=== PATIENT | male | born 1980 | race Caucasian/White ===

== ENCOUNTER 2018-02-04 02:08 | Inpatient (IN) | payer MEDICAID ==
[~2018-02-04] VITALS: Ht 188 cm; Wt 111.6 kg
--- NOTE | 2018-02-04 02:16 | NUR ---
PT RA LEFT ANKLE FRACTURE S/P GLF, RUNNING FROM SHOOTING X 30MINS YIELD ANALYST PER RA PLACED LEFT ANKLE AIR SPLINT. PT AOX3 RR EVEN AND UNLABORED. NO SOB NOTED. NAD NOTED. NO NVD AT THIS TIME. PT GOWNED AND PLACED ON MONITOR. DR DIETZ AT BEDSIDE FOR EVAL.
--- NOTE | 2018-02-04 02:17 | NUR ---
RADIOLOGY AT BEDSIDE FOR XR.
--- NOTE | 2018-02-04 02:25 | NUR ---
FINANCE ASSOCIATE AT BEDSIDE
[2018-02-04] MEDS ORDERED: MORPHINE SULFATE INJ 2 MG/ML DISP.SYRIN IV ONE (02:30)
[2018-02-04] MEDS ORDERED: ONDANSETRON HCL/PF - ER 4 MG/2 ML VIAL IV ONE (02:30)
[2018-02-04] MEDS ORDERED: CEFAZOLIN 1 GM in IV D5W 50 ML IV ONE (02:30)
[2018-02-04] MEDS ORDERED: CEFAZOLIN 1 GM ONE (02:36)
[2018-02-04] MEDS ORDERED: MORPHINE SULFATE INJ 2 MG/ML DISP.SYRIN ONE (02:36)
[2018-02-04] MEDS ORDERED: ONDANSETRON HCL/PF 4 MG/2 ML VIAL ONE (02:36)
--- NOTE | 2018-02-04 02:50 | NUR ---
ORTHO PAGED PER DR DIETZ
[2018-02-04] MEDS ORDERED: PROPOFOL 20 ML IV ONE (03:11)
--- NOTE | 2018-02-04 03:19 | NUR ---
PT READY FOR CONSCIOUS MODERATE SEDATION. ER MD DIETZ, FIELD SALES TRAINER JUSTYNA, FIELD SALES TRAINER JOSE J, RT BLANKA AND SUPERVISOR HAND WORKERSREYNA CORRAL AT BEDSIDE
--- NOTE | 2018-02-04 03:19 | NUR ---
VITAL SIGNS 108 99% 117/59 R 18 PRE SEDATION
--- NOTE | 2018-02-04 03:20 | NUR ---
PROPOFOL 80MG/8ML IVP RIGHT HAND 20G ADMINISTERED BY ER MD DIETZ. STANDBY IN CASE OF NEED FOR MORE SEDATION
--- NOTE | 2018-02-04 03:21 | NUR ---
POST ADMINSTRATION OF PROPOFOL 110 172/60 99% 17
--- NOTE | 2018-02-04 03:22 | NUR ---
PT STILL AWAKE. IVP RIGHT HAND 20G 20MG/2ML ADMINSTERED BY CHUCKING AND SAWING MACHINE OPERATORVEE MCKNIGHT. WILL CONTINUE TO MONITOR FOR ANY CHANGES
--- NOTE | 2018-02-04 03:25 | NUR ---
VITALS POST ADMINISTRATION OF 20MG OF PROPOFOL 170/61 90 17 99%
[2018-02-04] MEDS ORDERED: PROPOFOL 200 MG/20 ML VIAL IV ONE (03:30)
--- NOTE | 2018-02-04 03:36 | NUR ---
WASTED 100MG/10ML OF PROPOFOL WITH WIRING MECHANICVEE JANSEN
--- NOTE | 2018-02-04 03:36 | NUR ---
WITNESSED AND WASTED 100MG/10ML OF PROPOFOL WITH PROCESS CONTROL TECHNICIANVEE MCKNIGHT
--- NOTE | 2018-02-04 03:58 | NUR ---
RADIOLOGY AT BEDSIDE FOR POST REDUCTION XR
--- NOTE | 2018-02-04 04:08 | NUR ---
PT ASSIGNED 113-1
--- NOTE | 2018-02-04 04:17 | NUR ---
REPORT GIVEN TO VEE RODRIGUEZ.PTS ADMIT TO MS ROOM 113-1,PTS AWARE OF TRANSFER.
--- NOTE | 2018-02-04 04:58 | NUR ---
PT TRANSFERRED TO [facility] BED 113 [facility]
[2018-02-04] MEDS ORDERED: IV D5/0.45 NACL 1,000 ML IV PRN (05:04)
[2018-02-04 05:19] LABS: BASOPHILS % (AUTO) 0.4 % (0.0-2.0); EOSINOPHILS % (AUTO) 0.5 % (0.0-6.0); HEMATOCRIT 39 % (39-51); HEMOGLOBIN 13.2 g/dL (13.5-17.5); LYMPHOCYTES # (AUTO) 1.9 /CMM (0.8-4.8); LYMPHOCYTES % (AUTO) 15.8 % (20.0-44.0); MEAN CORPUSCULAR HGB CONC 34 g/dl (31.0-36.0); MEAN CORPUSCULAR VOLUME 86 fL (80-96); MONOCYTES # (AUTO) 0.7 /CMM (0.1-1.30); MONOCYTES % (AUTO) 5.7 % (2.0-12.0); NEUTROPHILS # (AUTO) 9.2 /CMM (1.8-8.9); NEUTROPHILS % (AUTO) 77.6 % (43.0-81.0); PLATELET COUNT (AUTO) 279 /CMM (150-450); RDW COEFFICIENT OF VARIATION 13.6 (11.5-15.0); RED BLOOD CELL COUNT(AUTO) 4.58 MIL/uL (4.5-6.0); WHITE BLOOD COUNT (AUTO) 11.9 K/uL (4.3-11.0)
[2018-02-04 05:27] LABS: ALBUMIN 4.4 g/dL (3.4-5.0); BILIRUBIN,TOTAL 0.4 mg/dL (0.2-1.0); CREATININE 1.4 mg/dL (0.6-1.3); MAGNESIUM 2.3 mg/dL (1.8-2.4); POTASSIUM 3.9 mmol/L (3.5-5.1); TOTAL PROTEIN, SERUM 8.5 g/dL (6.4-8.2)
[2018-02-04] MEDS ORDERED: ACETAMINOPHEN 325 MG TABLET PO PRN (05:30)
[2018-02-04] MEDS ORDERED: ONDANSETRON HCL/PF 4 MG/2 ML VIAL IVP PRN (05:30)
[2018-02-04] MEDS ORDERED: HYDROMORPHONE INJ 2 MG/ML DISP.SYRIN IV PRN (05:30)
[2018-02-04 05:38] LABS: INR 0.89 (0.87-1.13)
--- NOTE | 2018-02-04 06:00 | NUR ---
MADELINE RN NOTES RECEIVED PATIENT FROM THE ER. PATIENT IS A/O X4.NO LABORED BREATHING, NO SOB NOTED AT THIS TIME WITH SPO2 100% IN ROOM AIR. VITAL SIGNS ARE WNL. PATIENT IS COMPLAINING OF PAIN 10/10 IN PAIN SCALE . RIGHT HAND IV LINE 20G IS PATIENT, INTACT WITH 1/2 NS DEXTROSE @75ML/HR. LEFT FOOT IS IN CAST. PATIENT'S PANTS WERE CUP IN THE ER FOR EASY ACCESS TO THE FRACTURED EXTREMITY. ALL SAFETY MEASURES ARE IMPLEMENTED, BED IN LOW. LOCKED POSITION, CALL LIGHT IN REACH. WILL CONTINUE TO MONITOR.
[2018-02-04 07:17] VITALS: BP 149/90
--- NOTE | 2018-02-04 07:24 | NUR ---
RN NOTES ADMITTED WITH $896 OFFERED TO PUT IN THE SAFE BUT REFUSED. PREFERS TO KEEP AT BEDSIDE WITH HIS OTHER BELONGINGS. PATIENT IS ALERT AND ORIENTED X 4.
--- NOTE | 2018-02-04 07:30 | NUR ---
MS RN OPENING NOTE PATIENT IS ALERT AND ORIENTED x4. PATIENT STATES 8/10 PAIN ON LEFT ANKLE AREA, PAIN MEDICATIONS GIVEN BY RECONCILIATION ANALYST RN. ABLE TO COMMUNICATE NEEDS. NO SOB OR DISTRESS NOTED, ON ROOM AIR TOLERATING WELL AT 96%. NPO AT THIS TIME. USES URINAL. RIGHT HAND IV INTACT AND PATENT NO REDNESS OR SWELLING NOTED WITH IV FLUIDS RUNNING AT 75 ML/HR TOLERATING WELL. WILL CONTINUE TO MONITOR THROUGHOUT SHIFT
--- NOTE | 2018-02-04 09:25 | NUR ---
MS RN NOTE PER MD ORDER TO CHANGE DILAUDID 1 MG IV Q4H TO DILAUDID 1MG IV Q3H. ORDERS NOTED AND CARRIED OUT.
[2018-02-04] MEDS ORDERED: HYDROMORPHONE INJ 0.5 MG/0.5 ML SYRINGE IV PRN (09:30)
[2018-02-04] MEDS: IV NS 0.9% 1,000 ML IV PRN (10:17)
[2018-02-04] MEDS ORDERED: TDAP [DIPH/PERTUSSIS/TET] 0.5 ML VIAL IM ONE (10:30)
[2018-02-04] MEDS ORDERED: HYDROMORPHONE INJ 2 MG/ML DISP.SYRIN ONE ×2 (11:06→13:53)
[2018-02-04] MEDS ORDERED: SUCCINYLCHOLINE CHLORIDE 20 MG/ML VIAL ONE (11:06)
[2018-02-04] MEDS ORDERED: MIDAZOLAM 50 MG/10 ML VIAL ONE (11:06)
[2018-02-04] MEDS ORDERED: ROCURONIUM BROMIDE 50 MG/5 ML ONE ×3 (11:06→13:53)
[2018-02-04] MEDS ORDERED: MIDAZOLAM HCL 2 MG/2ML VIAL ONE ×2 (11:11)
--- NOTE | 2018-02-04 11:12 | NUR ---
MS RN NOTE CONSENTS OBTAINED FOR SURGICAL PROCEDURE TODAY WITH DR. MCFARLANE. CONSENTS PLACED IN CHART. CONSENT ALSO OBTAINED FOR TDAP VACCINATION, TO BE ADMINISTERED.
--- NOTE | 2018-02-04 11:46 | NUR ---
MS RN NOTE TDAP VACCINE ADMINISTERED ON LEFT DELTOID PRIOR TO SURGERY. OR IS NOW AT BEDSIDE TO TAKE PATIENT FOR PROCEDURE. WILL CONTINUE CARE WHEN PATIENT ARRIVES BACK ONTO UNIT
[2018-02-04] MEDS ORDERED: BACITRACIN 50000 UNITS/VIAL ONE (11:54)
[2018-02-04] MEDS: CEFAZOLIN 1 GM in IV D5W 50 ML IV SCH ×2 (13:00→21:17)
--- NOTE | 2018-02-04 13:00 | NUR ---
MS RN NOTE ANCEF DOSE GIVEN IN OR PRIOR TO SURGERY. MADE PHARMACY AWARE.
[2018-02-04] MEDS ORDERED: FENTANYL PF 100MCG/2ML AMPUL ONE (15:42)
[2018-02-04] MEDS ORDERED: oxyCODONE IR immediate release 5 MG PO PRN (16:00)
[2018-02-04] MEDS ORDERED: MORPHINE SULFATE INJ 2 MG/ML DISP.SYRIN IV PRN (16:00)
--- NOTE | 2018-02-04 16:00 | NUR ---
MS RN NOTE PATIENT NOW BACK FROM OR. PATIENT IS ALERT AND ORIENTED x4. ON 2L/MIN OF OXYGEN VIA NASAL CANNULA. HOWARD CATHETER IN AT THIS TIME, DRAINING WELL TO GRAVITY. ALL MD ORDERS NOTED AND CARRIED OUT. WILL CONTINUE TO MONITOR PATIENT
[2018-02-04 17:10] VITALS: BP 157/74
--- NOTE | 2018-02-04 18:38 | NUR ---
MS RN CLOSING NOTE PATIENT RESTING IN BED COMFORTABLY AT THIS TIME. NO FACIAL GRIMACING NOTED. NO SOB OR DISTRESS NOTED. CALL LIGHT WITHIN REACH AT ALL TIMES. SAFETY MEASURES IMPLEMENTED. ABLE TO COMMUNICATE NEEDS. IV INTACT AND PATENT WITH IV FLUIDS RUNNING AT THIS TIME. ALL DUE MEDICATIONS GIVEN ORDERED. S/P IRRIGATION AND DEBRIDEMENT AND SURGICAL FIXATION OF OPEN LEFT ANKLE FRACTURE DISLOCATION BY DR. BURROUGHS. HOWARD CATHETER IN PLACE AND DRAINING WELL-500 CC OUTPUT. LABS TO BE DRAWN IN AM. ON 2L/MIN OF OXYGEN VIA NASAL CANNULA TOLERATING WELL AT 95%. CLEAR LIQUID DIET AND ADVANCE TOLERATED. WILL ENDORSE TO CASHIER SUPERVISOR NURSE FOR BOOKER
[2018-02-04 20:00] VITALS: BP 126/64
[2018-02-04] MEDS: HYDROMORPHONE INJ 2 MG/ML DISP.SYRIN IV PRN (20:14)
[2018-02-04] MEDS: oxyCODONE IR immediate release 5 MG PO PRN (22:08)
[2018-02-05] MEDS: HYDROMORPHONE INJ 2 MG/ML DISP.SYRIN IV PRN ×7 (01:01→21:17)
[2018-02-05 04:00] VITALS: BP 116/71
[2018-02-05] MEDS: IV NS 0.9% 1,000 ML IV PRN (04:10)
[2018-02-05] MEDS: CEFAZOLIN 1 GM in IV D5W 50 ML IV SCH ×3 (04:12→21:30)
[2018-02-05] MEDS: oxyCODONE IR immediate release 5 MG PO PRN ×3 (06:34→15:28)
[2018-02-05 06:51] LABS: ALBUMIN 3.7 g/dL (3.4-5.0); BILIRUBIN,TOTAL 1.2 mg/dL (0.2-1.0); CALCIUM, SERUM 8.9 mg/dL (8.5-10.1); CREATININE 1.2 mg/dL (0.6-1.3); MAGNESIUM 1.9 mg/dL (1.8-2.4); PHOSPHORUS 3.5 mg/dL (2.5-4.9); POTASSIUM 3.7 mmol/L (3.5-5.1); TOTAL PROTEIN, SERUM 7.5 g/dL (6.4-8.2)
[2018-02-05 06:57] LABS: BASOPHILS % (AUTO) 0.2 % (0.0-2.0); EOSINOPHILS % (AUTO) 0.2 % (0.0-6.0); HEMATOCRIT 34 % (39-51); HEMOGLOBIN 11.4 g/dL (13.5-17.5); LYMPHOCYTES # (AUTO) 1.5 /CMM (0.8-4.8); LYMPHOCYTES % (AUTO) 13.3 % (20.0-44.0); MEAN CORPUSCULAR HGB CONC 34 g/dl (31.0-36.0); MEAN CORPUSCULAR VOLUME 86 fL (80-96); MONOCYTES # (AUTO) 1.2 /CMM (0.1-1.30); MONOCYTES % (AUTO) 10.2 % (2.0-12.0); NEUTROPHILS # (AUTO) 8.6 /CMM (1.8-8.9); NEUTROPHILS % (AUTO) 76.1 % (43.0-81.0); PLATELET COUNT (AUTO) 255 /CMM (150-450); RDW COEFFICIENT OF VARIATION 13.8 (11.5-15.0); RED BLOOD CELL COUNT(AUTO) 3.89 MIL/uL (4.5-6.0); WHITE BLOOD COUNT (AUTO) 11.4 K/uL (4.3-11.0)
--- NOTE | 2018-02-05 07:20 | NUR ---
RN NOTES PT IS LAYING DOWN IN BED, AWAKE AND ALERT. PT ON RA, RESPIRATIONS ARE EVEN AND UNLABORED. IV ON R HAND INTACT AND RUNNING NS @ 100ML/HR. SURGICAL SITE IS COVERED WITH DRESSING AND BANDAGE, INTACT AND CLEAN. NO SIGNS OF DISTRESS NOTED. SAFETY MEASURES ARE IN PLACE, CALL LIGHT IS IN REACH. WILL CONTINUE TO MONITOR.
--- NOTE | 2018-02-05 07:23 | NUR ---
MS RN NOTE PT REMAINED STABLE DURING SHIFT. NO ACUTE DISTRESS NOTED. PAIN MANAGED WITH MEDICATIONS. ALL NEEDS ATTENDED TO PROMPTLY. WILL ENDORSE TO NEXT SHIFT FOR CONTINUITY OF CARE.
[2018-02-05 08:00] VITALS: BP_SYST 119; BP_SYST 128; BP_DIAS 48; BP_DIAS 77
[2018-02-05] MEDS: ENOXAPARIN SODIUM 40 MG/0.4 ML DISP.SYRIN SQ SCH (08:09)
--- NOTE | 2018-02-05 08:40 | NUR ---
WOUND CARE CONSULT: PT PRESENTS WITH LEFT KNEE AND BACK ABRASIONS, PRESENT ON ADMISSION. RECOMMENDATIONS MADE FOR WOUND CARE. DISCUSSED WITH NURSING STAFF. PT HAS ORTHO DRESSING ON LEFT LOWER LEG/ANKLE AREA. WILL SEE PRN. Kiran Hart IN AGREEMENT WITH PLAN OF CARE. Addendum: 02/05/18 at 0841 by MILES KRUSE WNDNU Amended: Links added.
[2018-02-05] MEDS: BACITRACIN/POLYMYXIN B 15 GM TUBE TP SCH (10:22)
--- NOTE | 2018-02-05 11:00 | NUR ---
RN NOTES PTS HOWARD CATHETER WAS REMOVED. PT WAS ABLE TO VOID INTO URINAL AFTER REMOVAL.
[2018-02-05 16:00] VITALS: BP 121/70
--- NOTE | 2018-02-05 17:54 | NUR ---
RN NOTES PT REFUSED TO HAVE DRESSING CHANGED ON HIS JOH[place]ON AND BACK.
--- NOTE | 2018-02-05 18:34 | NUR ---
RN NOTES PT IS SITTING UP IN BED, AWAKE AND ALERT, RESTING COMFORTABLY. PT ON RA, RESPIRATIONS ARE EVEN AND UNLABORED. IV ON R HAND INTACT AND PATENT. ALL MEDS WERE GIVEN ORDERED AND PT NEEDS MET. NO SIGNS OF DISTRESS NOTED. DILAUDID 1MG GIVEN @ 1749 FOR PAIN MANAGEMENT. SAFETY MEASURES ARE IN PLACE, CALL LIGHT IS IN REACH. WILL ENDORSE TO GRID OPERATOR RN FOR CONTINUITY OF CARE.
[2018-02-05 19:56] VITALS: BP 135/70
[2018-02-05 20:00] VITALS: BP 135/70
--- NOTE | 2018-02-05 20:00 | NUR ---
MS 1 RN NOTE PT IN BED AWAKE. A/O X 4, NO SOB, NO DISTRESS OR DISCOMFORT NOTED. C/O PAIN 2/10 IN LT LOWER LEG. LT LOWER LEG WITH SPLINT ON WITH SX DRESSING. KEPT THE LEG ELEVATED. RT HAND SL INTACT AND PATENT. VSS. SIDE RAILS UP X 3 AND CALL LIGHT WITHIN REACH. CONTINUE TO MONITOR HIM.
[2018-02-06] MEDS: HYDROMORPHONE INJ 2 MG/ML DISP.SYRIN IV PRN ×2 (01:25→20:59)
[2018-02-06 04:00] VITALS: BP_SYST 137; BP_DIAS 70; BP_DIAS 78
[2018-02-06] MEDS: CEFAZOLIN 1 GM in IV D5W 50 ML IV SCH ×3 (05:34→20:56)
--- NOTE | 2018-02-06 06:29 | NUR ---
MS RN NOTE PT IN BED ASLEEP, AROUSABLE. NO DISTRESS OR DISCOMFORT NOTED. DENIES PAIN. KEPT LT LEG ELEVATED. ALL NEEDS ATTENDED. SIDE RAILS UP X 2 AND CALL LIGHT WITHIN REACH. WILL ENDORSE TO DAY SHIFT NURSE FOR CONTINUE TO CARE.
[2018-02-06 08:00] VITALS: BP 142/83
[2018-02-06] MEDS: oxyCODONE IR immediate release 5 MG PO PRN ×3 (08:11→16:54)
[2018-02-06] MEDS: ENOXAPARIN SODIUM 40 MG/0.4 ML DISP.SYRIN SQ SCH (08:12)
[2018-02-06] MEDS: BACITRACIN/POLYMYXIN B 15 GM TUBE TP SCH (08:20)
[2018-02-06] MEDS: IV NS 0.9% 1,000 ML IV PRN ×2 (08:20→16:53)
[2018-02-06 16:00] VITALS: BP 133/94
--- NOTE | 2018-02-06 16:55 | NUR ---
CLARIFIED WITH DR. URBANO PATIENT DISCHARGE ,PER HE NOTIFIED DR. MERIDA PAIN MGT MD R/T PAIN MEDS.,DR. UBRANO ALSO WANTED DR. MERIDA TO PRESCRIBED HOME PAIN MEDS.NO DISCHARGE FOR NOW .
--- NOTE | 2018-02-06 18:57 | NUR ---
RN CLOSING NOTES: PAIN MANAGEMENT WITH OXYCONTIN 10MG. NO DISTRESS NOTED. EATING WELL, VOIDING WELL. LLE ELEVATED ON PILLOW X1. CAP REFILL < 3SEC. NO LLE SWELLING NOTED. BED LOW AND LOCKED. CALL LIGHT WITHIN REACHED. WILL CONTINUE TO MONITOR.
--- NOTE | 2018-02-06 19:19 | NUR ---
MS RN OPENING NOTE RECEIVE PATIENT IS RESTING IN BED, A/O X 4, NO FACIAL GRIMACING NOTED FOR PAIN. NO SOB OR DISTRESS NOTED, IV INTACT AND PATENT NO REDNESS OR SWELLING NOTED. CALL LIGHT WITHIN REACH. SAFETY MEASURES IMPLEMENTED. WILL CONTINUE TO MONITOR THROUGHOUT SHIFT.
[2018-02-06 20:00] VITALS: BP 146/85
[2018-02-06] MEDS: ACETAMINOPHEN 325 MG TABLET PO SCH (20:56)
[2018-02-06] MEDS ORDERED: ZOLPIDEM TARTRATE 10 MG TABLET PO PRN (22:00)
[2018-02-07] MEDS ORDERED: oxyCODONE IR immediate release 5 MG PO PRN
[2018-02-07] MEDS: ACETAMINOPHEN 325 MG TABLET PO SCH ×2 (02:13→08:14)
[2018-02-07] MEDS: oxyCODONE IR immediate release 5 MG PO PRN ×2 (02:14→12:43)
[2018-02-07 04:00] VITALS: BP 120/84
[2018-02-07] MEDS: CEFAZOLIN 1 GM in IV D5W 50 ML IV SCH ×2 (05:05→12:34)
--- NOTE | 2018-02-07 06:09 | NUR ---
MS RN CLOSING NOTES PT COMFORTABLY ASLEEP AND EASILY AWAKEN, TOLERATING ROOM AIR 99% IN STABLE CONDITION. NO COMPLAIN OF PAIN, RESPIRATION EVEN AND UNLABORED. KEPT CLEAN AND DRY AND COMFORTABLE, ALL NURSING CARE RENDERED. NEEDS ATTENDED AND ANTICIPATED, GOOD SKIN CARE PROVIDED. FREQUENT VISUAL CHECK DONE FOR SAFETY EVERY 2 HOURS. ON LOW BED AT ALL TIMES TO ENSURE SAFETY. SAFE HAZARD FREE ENVIRONMENT PROVIDED. NO COMPLAINS OF PAIN. CALL LIGHT WITHIN EASY TO REACH. WILL ENDORSE NEXT SHIFT CONTINUITY OF CARE.
--- NOTE | 2018-02-07 07:38 | NUR ---
RN NOTES PT ASLEEP AND EASILY AROUSABLE, IN ROOM AIR AND TOLERATING WELL, IN STABLE CONDITION. RESPIRATION EVEN AND UNLABORED. NO S/SX OF DISTRESS AT THIS TIME, NO C/O PAIN AT THIS TIME, ON LOW BED TO ENSURE SAFETY. SAFE HAZARD FREE ENVIRONMENT PROVIDED. CALL LIGHT WITHIN EASY TO REACH. WILL CONTINUE TO MONITOR.
[2018-02-07] MEDS: BACITRACIN/POLYMYXIN B 15 GM TUBE TP SCH (08:20)
[2018-02-07] MEDS: ENOXAPARIN SODIUM 40 MG/0.4 ML DISP.SYRIN SQ SCH (08:23)
[2018-02-07] MEDS ORDERED: ENOX40DI SQ (13:51)
[2018-02-07] MEDS ORDERED: OXYC5CAP18 PO (13:51)
--- NOTE | 2018-02-07 15:52 | NUR ---
I&C TECHNICIAN Patient A/Ox4, verbally responsive, breathing even and unlabored, no sob noted, no s/sx of any distress at this time. Patient received discharge instructions and verbalized understanding. Discharge paperworks signed, prescription provided to the patient, and explained how to administer. Belongings reconciled and completed. PIV removed, applied gauze and tape. Skin assessment completed, skin dry and intact, photos taken of bilateral knees and bruise on his lower back. Left lower leg splint, clean, dry and intact. Patient reminded NWB on LLE, patient verbalized understanding. Crutches provided. All needs attended. Patient left the facility in a wheelchair via private car accompanied by his mother.
== END 2018-02-07 14:09 | disposition home or self-care (01) | DRG 313 ==
LOC: ER 02:11 → MEDSG1 04:40
PROVIDERS: ADMIT Nurse Practitioner Acute Care; ATTEND Internal Medicine
PROC: 0Y9L0ZZ Drainage of Left Ankle Region, Open Approach (ICD-10-PCS; principal; 2018-02-04 12:30)
PROC: 0QSK04Z Reposition Left Fibula with Internal Fixation Device, Open Approach (ICD-10-PCS; principal; 2018-02-04 12:30)
DX: S82.842A Displaced bimalleolar fracture of left lower leg, initial encounter for closed fracture (principal); F14.10 Cocaine abuse, uncomplicated; F10.10 Alcohol abuse, uncomplicated; F17.210 Nicotine dependence, cigarettes, uncomplicated; W01.0XXA Fall on same level from slipping, tripping and stumbling without subsequent striking against object, initial encounter; Y92.9 Unspecified place or not applicable; S82.852A Displaced trimalleolar fracture of left lower leg, initial encounter for closed fracture; I45.10 Unspecified right bundle-branch block; E86.0 Dehydration
CPT/HCPCS: 36415; 73600-TC; 73610-TC; 73620-TC; 73700-TC; 80053-TC; 83735-TC; 84100-TC; 85025-TC; 85730-TC; 86850-TC; 87081-TC; 90715; A4217; A4606; A6253; A6402; A6403; C1713; J0330; J0690; J1100; J1170; J1650; J2250; J2270; J2405; J2704; J2710; J3010; J3490; J7030; J7060; Z7610